=== PATIENT | male | born 1965 | race Caucasian/White ===

== ENCOUNTER 2016-07-13 21:19 | Emergency (ER) | payer MEDICARE | END 2016-07-13 23:04 | disposition home or self-care (01) | LOC: D.ER 21:19 | DX: S68.115A Complete traumatic metacarpophalangeal amputation of left ring finger, initial encounter (principal); X58.XXXA Exposure to other specified factors, initial encounter; Y93.89 Activity, other specified; Y92.89 Other specified places as the place of occurrence of the external cause; I10 Essential (primary) hypertension ==